=== PATIENT | male | born 1995 | race African-American/Black ===

== ENCOUNTER 2022-07-31 04:23 | Day surgery (SDC) | payer OTHER ==
[2022-07-27 10:02] VITALS: BMI 20.5
[2022-07-31 15:29] VITALS: RESP 20
[2022-07-31] MEDS ORDERED: MIDAZOLAM HCL 2 MG/2 ML SINGLE DOSE VIAL ONE (18:03)
[2022-07-31] MEDS ORDERED: ONDANSETRON 4 MG/2 ML VIAL ONE (18:03)
[2022-07-31] MEDS ORDERED: PROPOFOL 20 ML ONE (18:36)
[2022-07-31 20:19] VITALS: TEMP 97.9
[2022-07-31 20:21] VITALS: BP 118/75; PULSE 68
== END 2022-07-31 20:05 | disposition home or self-care (01) ==
LOC: JASU-SURG 04:23
PROVIDERS: ATTEND Urology
PROC: 0TF4XZZ Fragmentation in Left Kidney Pelvis, External Approach (ICD-10-PCS; principal; 2022-07-31 17:00)
DX: N20.0 Calculus of kidney (principal)